=== PATIENT | female | born 1990 | race Two or more races ===

== ENCOUNTER 2018-12-09 16:56 | Emergency (ER) | payer MEDICAID ==
[~2018-12-09] VITALS: Ht 144.8 cm; Wt 74.8 kg
[2018-12-09 16:56] VITALS: BP 133/64
[2018-12-09] MEDS ORDERED: OXYMETAZOLINE 0.05% NASAL SPRAY 30ML BOTTLE. NS ONE (17:15)
[2018-12-09 17:17] LABS: BASO # 0.1 x10^3/uL (0.0-0.2); BASO % 1 % (0-3); EOS # 0.1 x10^3/uL (0.0-0.7); EOS % 1 % (0-3); HEMATOCRIT 40.7 % (36.0-47.0); HEMOGLOBIN 13.5 g/dL (12.0-15.5); LYMPH # 1.9 x10^3/uL (1.0-4.8); LYMPH % 20 % (24-48); MEAN CORPUSCULAR HEMOGLOBIN 30 pg (25-35); MEAN CORPUSCULAR HGB CONC 33 g/dL (31-37); MEAN CORPUSCULAR VOLUME 92 fL (79-100); MONO # 0.4 x10^3/uL (0.0-1.1); MONO % 5 % (0-9); NEUT # 6.7 x10^3uL (1.8-7.7); NEUT % 74 % (31-73); PLATELET COUNT 282 x10^3/uL (140-400); RED BLOOD COUNT 4.44 x10^6/uL (3.50-5.40); RED CELL DISTRIBUTION WIDTH 12.7 % (11.5-14.5); WHITE BLOOD COUNT 9.1 x10^3/uL (4.0-11.0)
[2018-12-09 17:28] LABS: CALCIUM 9.5 mg/dL (8.5-10.1); CREATININE 0.7 mg/dL (0.6-1.0); GFR 98.9; POTASSIUM 4.1 mmol/L (3.5-5.1)
[2018-12-09 17:29] LABS: PROTHROMBIN TIME PATIENT 12.5 SEC (11.7-14.0)
[2018-12-09 17:34] LABS: ALBUMIN 3.3 g/dL (3.4-5.0); ALBUMIN/GLOBULIN RATIO 0.7 (1.0-1.7); TOTAL BILIRUBIN 0.4 mg/dL (0.2-1.0); TOTAL PROTEIN 7.9 g/dL (6.4-8.2)
--- NOTE | 2018-12-09 17:57 | PHYS DOC ---
Past Medical History Past Medical History: Seizure (ROEHARISH Geiger APRN) Past Surgical History: No Surgical History (RADHAULYSSESHARISH Geiger APRN) Alcohol Use: None Drug Use: None (RADHAULYSSESHARISH Geiger APRN) Adult General Chief Complaint Chief Complaint: NOSEBLEED [facility] HPI Patient is a 28 year old female who presents with a nosebleed that started this morning. The patient states that she had a nosebleed and headache when she woke up this morning. She states that she took ibuprofen and both of those symptoms resolved. She states that she experienced a recurrence of the nosebleed this afternoon. She put some cotton packing in her nose and presented directly to the emergency department. She denies use of blood thinners or any bleeding disorders. (RADHAULYSSESEVENSHARISHCECILE Geiger APRN) Review of Systems Review of Systems Constitutional: Denies fever or chills [] Eyes: Denies change in visual acuity, redness, or eye pain [] HENT: See history of present illness Respiratory: Denies cough or shortness of breath [] Cardiovascular: No additional information not addressed in HPI [] Neurologic: Denies headache, focal weakness or sensory changes [] Endocrine: Denies polyuria or polydipsia [] All other systems were reviewed and found to be within normal limits, except as documented in this note. (EVENS AUCECILE Geiger APRN) Current Medications Current Medications Current Medications Medications (Trade) Dose Ordered Sig/Elvia Start Time Stop Time Status Last Admin Dose Admin Oxymetazoline HCl (Afrin) 2 spray 1X ONCE 12/09/18 17:15 12/09/18 17:18 DC 12/09/18 17:43 2 SPRAY (FARZANEH PAINTER DO) Allergies Allergies Allergies Coded Allergies Type Severity Reaction Last Updated Verified No Known Drug Allergies 12/09/18 No (FARZANEH PAINTER DO) Physical Exam Physical Exam Constitutional: Well developed, well nourished, no acute distress, non-toxic appearance. [] HENT: Normocephalic, atraumatic, bilateral external ears normal, oropharynx moist, no oral exudates, right nare shows evidence of epistaxis, left nare is normal Eyes: PERRLA, EOMI, conjunctiva normal, no discharge. [] Neck: Normal range of motion, no tenderness, supple, no stridor. [] Cardiovascular:Heart rate regular rhythm, no murmur [] Lungs & Thorax: Bilateral breath sounds clear to auscultation [] Neurologic: Alert and oriented X 3, normal motor function, normal sensory function, no focal deficits noted. [] Psychologic: Affect normal, judgement normal, mood normal. [] (HARISH AU HALIMA) Current Patient Data Vital Signs Vital Signs Date Time Temp Pulse Resp B/P (MAP) Pulse Ox O2 Delivery O2 Flow Rate FiO2 12/09/18 16:56 98.1 83 20 133/64 (87) 99 Room Air 98.1 (PAINTER,[employer] ) Lab Values Laboratory Tests Test 12/09/18 17:00 White Blood Count 9.1 x10^3/uL (4.0-11.0) Red Blood Count 4.44 x10^6/uL (3.50-5.40) Hemoglobin 13.5 g/dL (12.0-15.5) Hematocrit 40.7 % (36.0-47.0) Mean Corpuscular Volume 92 fL (79-100) Mean Corpuscular Hemoglobin 30 pg (25-35) Mean Corpuscular Hemoglobin Concent 33 g/dL (31-37) Red Cell Distribution Width 12.7 % (11.5-14.5) Platelet Count 282 x10^3/uL (140-400) Neutrophils (%) (Auto) 74 % (31-73) H Lymphocytes (%) (Auto) 20 % (24-48) L Monocytes (%) (Auto) 5 % (0-9) Eosinophils (%) (Auto) 1 % (0-3) Basophils (%) (Auto) 1 % (0-3) Neutrophils # (Auto) 6.7 x10^3uL (1.8-7.7) Lymphocytes # (Auto) 1.9 x10^3/uL (1.0-4.8) Monocytes # (Auto) 0.4 x10^3/uL (0.0-1.1) Eosinophils # (Auto) 0.1 x10^3/uL (0.0-0.7) Basophils # (Auto) 0.1 x10^3/uL (0.0-0.2) Prothrombin Time 12.5 SEC (11.7-14.0) Prothrombin Time INR 1.0 (0.8-1.1) PTT 33 SEC (24-38) Sodium Level 142 mmol/L (136-145) Potassium Level 4.1 mmol/L (3.5-5.1) Chloride Level 106 mmol/L (98-107) Carbon Dioxide Level 27 mmol/L (21-32) Anion Gap 9 (6-14) Blood Urea Nitrogen 14 mg/dL (7-20) Creatinine 0.7 mg/dL (0.6-1.0) Estimated GFR (Cockcroft-Gault) 98.9 BUN/Creatinine Ratio 20 (6-20) Glucose Level 73 mg/dL (70-99) Calcium Level 9.5 mg/dL (8.5-10.1) Total Bilirubin 0.4 mg/dL (0.2-1.0) Aspartate Amino Transferase (AST) 28 U/L (15-37) Alanine Aminotransferase (ALT) 33 U/L (14-59) Alkaline Phosphatase 92 U/L (46-116) Total Protein 7.9 g/dL (6.4-8.2) Albumin 3.3 g/dL (3.4-5.0) L Albumin/Globulin Ratio 0.7 (1.0-1.7) L Laboratory Tests 12/09/18 17:00 Laboratory Tests 12/09/18 17:00 (FARZANEH PAINTER DO) EKG EKG [] (HARISH AU APRN) Radiology/Procedures Radiology/Procedures []The packing was removed from the patient's right nostril with no rebleeding noted. She blew out the clot and Afrin was placed in the nostril. The patient has still not experienced rebleeding in the emergency department. (HARISH AU APRN) Course & Med Decision Making Course & Med Decision Making Pertinent Labs and Imaging studies reviewed. (See chart for details) [] (HARISH AU APRN) Dragon Disclaimer Dragon Disclaimer This electronic medical record was generated, in whole or in part, using a voice recognition dictation system. (HARISH AU APRN) Departure Departure Impression: Primary Impression: Epistaxis Disposition: 01 HOME, SELF-CARE Condition: STABLE Referrals: UNKNOWN PCP NAME (PCP) Patient Instructions: Nosebleed Additional Instructions: Try not to pick your nose, blow out the clots or manually manipulate the nostril. Follow-up with your primary care provider tomorrow for recheck. If worsening return to the emergency department. Use a humidifier at home to help keep your nostrils moisturized. Attending Signature Attending Signature I have reviewed the PA/JOURNEYMAN ELECTRICIAN's note and plan of care. I was available for consultation as needed during the patient's visit in the emergency department. I agree with the clinical impression, plan, and disposition. (FARZANEH PAINTER DO) HARISH AU APRN Dec 09, 2018 17:56 FARZANEH PAINTER DO Dec 11, 2018 05:03
== END 2018-12-09 18:06 | disposition home or self-care (01) ==
LOC: ER 16:56
DX: R04.0 Epistaxis (principal); R51 Headache
CPT/HCPCS: 36415; 80053; 85025; 85610; 85730; 99283

== ENCOUNTER 2018-12-30 14:28 | Emergency (ER) | payer MEDICAID, OTHER ==
[~2018-12-30] VITALS: Ht 144.8 cm; Wt 73.9 kg
[2018-12-30 15:54] VITALS: BP 116/57
--- NOTE | 2018-12-30 16:38 | PHYS DOC ---
Past Medical History Past Medical History: Seizure Past Surgical History: No Surgical History Alcohol Use: None Drug Use: None Adult General Chief Complaint Chief Complaint: SKIN PROBLEM HPI HPI Patient is a 28 year old female who presents to the emergency room with complaints of hives all over since yesterday. Patient states that it prior to arrival she took 3 Benadryl tablets at home. Patient reports itching with hives. She also states that her tongue feels a little swollen. Patient denies any wheezing, shortness of breath, difficulty swallowing, abdominal pain, nausea , vomiting, diarrhea, nasal congestion, or cough. She denies taking any new medications, trying any new foods, or exposure to any new detergents, perfumes, or environmental exposures. Patient states that she took 3 Benadryl an hour before her arrival to the emergency room. She states that the itching has decreased and the hives have diminished in severity since taking the Benadryl. Review of Systems Review of Systems Constitutional: Denies fever or chills [] Eyes: Denies redness, or eye pain [] HENT: Denies nasal congestion or sore throat; see HPI [] Respiratory: Denies cough, wheezing, or shortness of breath [] Cardiovascular: No additional information not addressed in HPI [] GI: Denies abdominal pain, nausea, vomiting, or diarrhea [] Musculoskeletal: Denies back pain or joint pain [] Integument: See HPI Neurologic: Denies headache, focal weakness or sensory changes [] Current Medications Current Medications Current Medications Medications (Trade) Dose Ordered Sig/[facility] Start Time Stop Time Status Last Admin Dose Admin Dexamethasone Sodium Phosphate (Decadron) 10 mg 1X ONCE 12/30/18 16:45 12/30/18 16:46 DC Allergies Allergies Allergies Coded Allergies Type Severity Reaction Last Updated Verified No Known Drug Allergies 12/09/18 No Physical Exam Physical Exam Constitutional: Well developed, well nourished, no acute distress, non-toxic appearance. [] HENT: Normocephalic, atraumatic, bilateral external ears normal, bilateral TMs normal, tongue normal, oropharynx moist, no oral exudates, nose normal. [] Eyes: PERRLA,conjunctiva normal, no discharge. [] Neck: Normal range of motion, no stridor. [] Cardiovascular:Heart rate regular rhythm, no murmur [] Lungs & Thorax: Bilateral breath sounds clear to auscultation [] Skin: Warm, dry, no erythema, scattered red raised welts all over face, trunk, and extremities x 4 consistent with hives Extremities: No cyanosis, no clubbing, ROM intact, no edema. [] Neurologic: Alert and oriented X 3, normal motor function, normal sensory function, no focal deficits noted. [] Psychologic: Affect normal, judgement normal, mood normal. [] EKG EKG [] Radiology/Procedures Radiology/Procedures [] Course & Med Decision Making Course & Med Decision Making Pertinent Labs and Imaging studies reviewed. (See chart for details) [] Dragon Disclaimer Dragon Disclaimer This electronic medical record was generated, in whole or in part, using a voice recognition dictation system. Departure Departure Impression: Primary Impression: Urticaria Disposition: 01 HOME, SELF-CARE Condition: STABLE Referrals: NO PCP (PCP) Patient Instructions: Diphenhydramine capsules or tablets, Hives, [id number] Additional Instructions: Continue taking 1-2 benadryl every 6 hours as needed for itching or hives. Follow up with your primary care doctor if symptoms persist, return to the ER if symptoms worsen. MARYANN GRUBBS APRN Dec 30, 2018 16:38
[2018-12-30] MEDS ORDERED: DEXAMETHASONE SOD PHOS 20 MG/5 ML VIAL. PO ONE (16:45)
== END 2018-12-30 17:15 | disposition home or self-care (01) ==
LOC: ER 14:28
DX: L50.9 Urticaria, unspecified (principal)
CPT/HCPCS: 99282; J1100